=== PATIENT | female | born 1980 | race African-American/Black ===

== ENCOUNTER 2017-04-17 17:44 | Emergency (ER) | payer MEDICARE, MEDICAID ==
[~2017-04-17 17:44] MED LIST: ISOVUE-370 76%-LOCM 1 ML ONE
[2017-04-17] MEDS ORDERED: Sodium Chloride 0.9% 100 ML ONE (18:17)
[2017-04-17] MEDS ORDERED: Ketorolac Tromethamine 30 MG/ML VIAL ONE (18:17)
[2017-04-17] MEDS ORDERED: Morphine 10 MG/ML VIAL ONE (18:22)
[2017-04-17 18:23] LABS: Hematocrit 45.1 % (36.0-47.0); Red Blood Cell (RBC) Count 4.72 mill/uL (4.20-5.40); White Blood Cell (WBC) Count 5.8 thou/uL (4.8-10.8)
[2017-04-17 18:39] LABS: Band 2 % (5-11); Neutrophil 41 % (42-75); Reactive Lymphocytes 9 % (0-10)
[2017-04-17 18:47] LABS: ALT (SGPT) 15 U/L (8-55); AST (SGOT) 22 U/L (5-34); Alkaline Phosphatase 76 U/L (40-150); Anion Gap 15 mmol/L (10-20); BUN (Urea Nitrogen) 13 mg/dL (7.0-18.7); Bilirubin, Total 1.6 mg/dL (0.2-1.2); Calc. Creatinine Clearance 0 mL/min (70-130); Calcium 10.1 mg/dL (7.8-10.44); Carbon Dioxide 23 mmol/L (22-29); Chloride 104 mmol/L (98-107); Estimated GFR-MDRD Greater than 90; Globulin 4.1 g/dL (2.4-3.5); Lipase 26 U/L (8-78); Protein, Total 8.3 g/dL (6.0-8.3)
[2017-04-17 19:02] LABS: Bilirubin Negative (Negative); Blood, Urine Negative (Negative); Glucose, Urine (Dipstick) Negative (Negative); Ketone, Urine 15 mg/dL (Negative); Nitrite Positive (Negative); Protein, Urine (Dipstick) Negative (Neg-Trace)
[2017-04-17 19:03] LABS: Bacteria/HPF 4+ HPF (None Seen); Hyaline Casts/LPF 0-3 HYALINE CAST LPF (0-3 Hyaline); Squamous Epithelial 0-3 HPF (0-3)
[2017-04-17 19:20] LABS: RBC/HPF 0-3 HPF (0-3)
--- NOTE | 2017-04-17 19:27 | CT ---
CT OF ABDOMEN AND PELVIS PERFORMED WITH CONTRAST ENHANCEMENT: 04/17/17 COMPARISON: 11/13/12 study. HISTORY: Right lower quadrant pain. History of renal calculi. The lung bases are clear. The liver and spleen show no focal abnormalities. The gallbladder has been removed. There is some mild extrahepatic ductal dilatation, probably on the basis of cholecystectom y. Spleen is unremarkable. There is evidence of a gastric bypass. Right and left adrenal glands are normal in appearance. Right and left kidneys are normal in size. N o renal calculi are seen. No ureteral calculus or signs of obstruction. No significant periaortic or mesenteric adenopathy. CT OF PELVIS PERFORMED WITH CONTRAST ENHANCEMENT: No evidence of adenopathy, mass or free fluid. The appendix is normal in appearance. A cyst is ident ified in the right adnexa. It measures 2.8 cm in maximum size. No evidence of any significant free f luid. IMPRESSION: No acute abnormalities of the abdomen or pelvis. Right ovarian cyst. Normal appendix. Postop cholecy stectomy change. POS: [facility]
--- NOTE | 2017-04-17 21:22 | ULT ---
PELVIC ULTRASOUND: 04/17/17 HISTORY: Right lower quadrant pain. COMPARISON: An earlier CT examination done today. Real time images of the pelvis were performed transabdominally as well as endovaginally. These show the uterus to have been removed. There is a small follicle involving the left adnexa and an approxim ately 1.6 x 5.5 cm right ovarian cyst. DOPPLER EVALUATION WITH SPECTRAL ANALYSIS: Normal flow is shown to both adnexa. IMPRESSION: 1. Postop hysterectomy change. 2. Approximately 1.6 x 5 cm right ovarian cyst. POS: [facility]
== END 2017-04-17 21:32 | disposition home or self-care (01) ==
LOC: ERS 17:44
DX: N83.201 Unspecified ovarian cyst, right side (principal); E11.9 Type 2 diabetes mellitus without complications; E78.5 Hyperlipidemia, unspecified; I10 Essential (primary) hypertension; Z79.899 Other long term (current) drug therapy
CPT/HCPCS: 74177; 76856; 80053; 81003; 81015; 83690; 84703; 85025; 93005; 96365; 96375; 96376; J1885; J2270; J7050

== ENCOUNTER 2018-02-16 20:55 | Emergency (ER) | payer MEDICARE, MEDICAID ==
[2018-02-16 22:06] LABS: #Basophils 0.1 thou/uL (0.0-0.2); #Lymphocytes 1.8 thou/uL (1.20-3.40); #Monocytes 0.5 thou/uL (0.11-0.59); #Neutrophils 3.1 thou/uL (1.40-6.50); %Basophils 1.3 % (0.0-1.0); %Eosinophils 0.5 % (0.0-10.0); %Lymphocytes 33.1 % (21.0-51.0); %Monocytes 8.7 % (0.0-10.0); %Neutrophils 56.5 % (42.0-75.0); Hemoglobin 13.3 g/dL (12.0-16.0); Mean Corpuscular Hemoglobin 30.6 pg (27.0-31.0); Mean Corpuscular Volume 95.8 fL (78.0-98.0); Platelet Count 237 thou/uL (130-400); RBC Distribution Width 12.2 % (11.5-14.5); Red Blood Cell (RBC) Count 4.34 mill/uL (4.20-5.40); White Blood Cell (WBC) Count 5.5 thou/uL (4.8-10.8)
[2018-02-16 22:33] LABS: Bilirubin Negative (Negative); Blood, Urine Trace (Negative); Clarity CLOUDY (Clear); Glucose, Urine (Dipstick) Negative (Negative); Leukocyte Small (Negative); Nitrite Negative (Negative); Protein, Urine (Dipstick) Negative (Neg-Trace); Specific Gravity, Urine 1.029 (1.002-1.036); pH, Urine 5.5 (5.0-9.0)
[2018-02-16 22:34] LABS: Bacteria/HPF 4+ HPF (None Seen)
[2018-02-16 22:35] LABS: Pathc Cast-AUWi Flag 4.76 (0-2.49)
[2018-02-16 22:39] LABS: ALT (SGPT) 12 U/L (8-55); AST (SGOT) 17 U/L (5-34); Albumin 3.9 g/dL (3.5-5.0); Alkaline Phosphatase 65 U/L (40-150); Anion Gap 13 mmol/L (10-20); BUN (Urea Nitrogen) 12 mg/dL (7.0-18.7); Bilirubin, Total 0.8 mg/dL (0.2-1.2); Calc. Creatinine Clearance 0 mL/min (70-130); Calcium 9.4 mg/dL (7.8-10.44); Carbon Dioxide 26 mmol/L (22-29); Chloride 108 mmol/L (98-107); Estimated GFR-MDRD Greater than 90; Globulin 3.3 g/dL (2.4-3.5); Glucose 97 mg/dL (70-105); Potassium 3.9 mmol/L (3.5-5.1); Protein, Total 7.2 g/dL (6.0-8.3); Sodium 143 mmol/L (136-145)
[2018-02-16 22:47] LABS: RBC/HPF 0-3 HPF (0-3)
[2018-02-16 22:48] LABS: Crystals/HPF RARE CA OXALATE HPF (Negative); Hyaline Casts/LPF 0-3 HYALINE CAST LPF (0-3 Hyaline)
[2018-02-16 22:56] LABS: BHCG - Serum Negative (NEGATIVE); Pregs Control Background? CLEAR/WHITE (CLR/WHITE); Pregs Control Bar Appear? YES (CONTROL BAR)
[2018-02-16] MEDS ORDERED: Ketorolac Tromethamine 60 MG/2 ML VIAL ONE (23:04)
--- NOTE | 2018-02-16 23:17 | CT ---
CT ABDOMEN AND PELVIS WITHOUT CONTRAST STONE PROTOCOL 02/16/18 HISTORY: Right sided flank pain. COMPARISON: CT abdomen and pelvis of 04/17/17. FINDINGS: Calcified right hilar lymph nodes. No pericardial effusion. Lung bases are clear. Prior gastric surge ry. Numerous phleboliths in the pelvis. No nephroureterolithiasis or hydroureteronephrosis. No secondary evidence of a recently pass stone. Multiple gonadal vein phleboliths. Hypodense foci along the right adnexa suggestive of cysts. No dilated loops of large or small bowel. Skeleton is unremarkable. Noncontrast evaluation of the bettina er and pancreas are unremarkable. Numerous calcified granulomas of the spleen. Appendix is visualized and is normal. IMPRESSION: 1. No nephroureterolithiasis or hydroureteronephrosis. No secondary evidence o a recently passed stone. 2. Numerous phleboliths right gonadal veins. 3. Normal appendix. POS: [facility]
== END 2018-02-17 00:20 | disposition home or self-care (01) ==
LOC: ERS 20:55
DX: N30.00 Acute cystitis without hematuria (principal); E11.9 Type 2 diabetes mellitus without complications; E78.5 Hyperlipidemia, unspecified; I10 Essential (primary) hypertension; Z79.899 Other long term (current) drug therapy
CPT/HCPCS: 36415; 74176; 80053; 81003; 81015; 84703; 85025; 96372; J1885